=== PATIENT | female | born 1955 | race American Indian/Alaskan Native ===

== ENCOUNTER 2017-06-14 19:41 | Emergency (ER) | payer MEDICARE ==
[2017-06-14 20:28] LABS: Basophils % (Auto) 0.7 % (0.0-1.8); Eosinophils % (Auto) 1.8 % (0.0-4.3); Hematocrit 36.8 % (30.3-42.9); Hemoglobin 11.7 gm/dl (10.1-14.3); Mean Corpuscular HGB Conc 32 % (30-34); Mean Corpuscular Hemoglobin 28 pg (28-32); Mean Corpuscular Volume 89 fl (79-97); Platelet Count 358 K/mm3 (140-440); Red Blood Count 4.14 M/mm3 (3.65-5.03); Red Cell Distribution Width 14.1 % (13.2-15.2); White Blood Count 6.5 K/mm3 (4.5-11.0)
[2017-06-14 20:30] LABS: INR 0.87 (0.87-1.13)
[2017-06-14 20:31] LABS: Anion Gap 18 mmol/L; BUN/Creatinine Ratio 15; Blood Urea Nitrogen 22 mg/dL (7-17); Calcium 9.4 mg/dL (8.4-10.2); Carbon Dioxide 29 mmol/L (22-30); Chloride 96.6 mmol/L (98-107); Glucose 103 mg/dL (65-100); Potassium 3.7 mmol/L (3.6-5.0); Sodium 140 mmol/L (137-145)
[2017-06-14 20:31] LABS: Partial Thromboplastin Time 26.9 Sec. (24.2-36.6)
--- NOTE | 2017-06-14 20:31 | Cat Scan Report ---
FINAL REPORT PROCEDURE: CT HEAD/BRAIN WO CON TECHNIQUE: Computerized tomography of the head was performed without contrast material. HISTORY: neuro deficits < 6hrs or sx present upon awakening COMPARISON: No prior studies are available for comparison. FINDINGS: Skull and scalp: Normal. Paranasal sinuses: Normal. Ventricles and subarachnoid spaces: Normal. Cerebrum: No evidence of hemorrhage, acute infarction or mass . Cerebellum and brainstem: No evidence of hemorrhage, acute infarction or mass. Vasculature: Normal. Comments: None. IMPRESSION: Normal Examination
[2017-06-14 20:49] VITALS: BP 119/65
--- NOTE | 2017-06-14 21:48 | Emergency Department Report ---
ED General Adult HPI - General Chief complaint: Neuro Symptoms/Deficit Stated complaint: GENERAL WEAKNESS Time Seen by Provider: 06/14/17 19:51 Source: patient, EMS (ems notes not available at time of chart dictation), RN notes reviewed Mode of arrival: Stretcher Limitations: No Limitations - History of Present Illness Initial comments: This is a 61-year-old female who was previously unknown to this provider. Patient reports a history of anxiety. Patient is brought to the hospital by EMS as a possible stroke. Patient has no recollection of the events. She reports that she got nauseous and threw up. She currently denies headache, neck pain, chest pain, abdominal pain or shortness of breath. Her symptoms do not radiate anywhere, and they have no exacerbating or relieving factors. As per verbal report from the nurse, patient had an episode of syncope, passed out, and had slurred speech. Patient has no recollection of this. Patient denies pulmonary embolus and DVT risk factors. Patient reports feeling anxious currently. -: Sudden Severity scale (0 -10): 0 Consistency: now resolved Improves with: none Worsens with: none Associated Symptoms: confusion, nausea/vomiting, syncope. denies: chest pain, cough, diaphoresis, fever/chills, loss of appetite, malaise, shortness of breath , weakness - Related Data Allergies Allergy/AdvReac Type Severity Reaction Status Date / Time NSAIDS (Non-Steroidal Allergy Nausea Verified 06/14/17 19:52 Anti-Inflamma ED Review of Systems ROS: Stated complaint: GENERAL WEAKNESS Other details as noted in HPI ED Past Medical Hx - Past Medical History Previous Medical History?: Yes Hx Hypertension: Yes Hx Liver Disease: Yes (hep C) - Surgical History Past Surgical History?: Yes Additional Surgical History: hysterectomy, tubal ligation - Social History Smoking Status: Never Smoker Substance Use Type: None ED Physical Exam - General Limitations: No Limitations General appearance: alert, in no apparent distress - Head Head exam: Present: atraumatic, normocephalic - Eye Eye exam: Present: normal appearance, EOMI. Absent: nystagmus - ENT ENT exam: Present: normal exam, normal orophraynx, mucous membranes moist, normal external ear exam - Neck Neck exam: Present: normal inspection, full ROM - Respiratory Respiratory exam: Present: normal lung sounds bilaterally. Absent: respiratory distress - Cardiovascular Cardiovascular Exam: Present: normal rhythm, tachycardia, normal heart sounds. Absent: systolic murmur, diastolic murmur, rubs, gallop - GI/Abdominal GI/Abdominal exam: Present: soft, normal bowel sounds. Absent: distended, tenderness, guarding, rebound, rigid, pulsatile mass - Extremities Exam Extremities exam: Present: normal inspection, full ROM, normal capillary refill. Absent: pedal edema, joint swelling, calf tenderness - Back Exam Back exam: Present: normal inspection, full ROM. Absent: tenderness, CVA tenderness (R), paraspinal tenderness, vertebral tenderness - Neurological Exam Neurological exam: Present: alert, oriented X3, CN II-XII intact, normal gait, other (Extraocular movements intact. Tongue midline. No facial droop. Facial sensation intact to light touch in the V1, V2, V3 distribution bilaterally. 5 and 5 strength in 4 extremities.. Sensation is intact to light touch in 4 extremities.). Absent: motor sensory deficit - Psychiatric Psychiatric exam: Present: anxious - Skin Skin exam: Present: warm, dry, intact, normal color. Absent: rash ED Course Vital Signs 06/14/17 19:47 Temperature 98.4 F Pulse Rate 104 H Respiratory 18 Rate Blood Pressure 119/65 [Left] O2 Sat by Pulse 98 Oximetry ED Medical Decision Making - Lab Data Result diagrams: 06/14/17 19:58 06/14/17 19:50 Vital Signs 06/14/17 19:47 Temperature 98.4 F Pulse Rate 104 H Respiratory 18 Rate Blood Pressure 119/65 [Left] O2 Sat by Pulse 98 Oximetry Lab Results 06/14/17 06/14/17 06/14/17 Range/Units 19:50 19:53 19:58 WBC 6.5 (4.5-11.0) K/mm3 RBC 4.14 (3.65-5.03) M/mm3 Hgb 11.7 (10.1-14.3) gm/dl Hct 36.8 (30.3-42.9) % MCV 89 (79-97) fl MCH 28 (28-32) pg MCHC 32 (30-34) % RDW 14.1 (13.2-15.2) % Plt Count 358 (140-440) K/mm3 Lymph % (Auto) 51.4 H (13.4-35.0) % Tama % (Auto) 9.0 H (0.0-7.3) % Eos % (Auto) 1.8 (0.0-4.3) % Baso % (Auto) 0.7 (0.0-1.8) % Lymph # 3.3 (1.2-5.4) K/mm3 Tama # 0.6 (0.0-0.8) K/mm3 Eos # 0.1 (0.0-0.4) K/mm3 Baso # 0.0 (0.0-0.1) K/mm3 Seg Neutrophils % 37.1 L (40.0-70.0) % Seg Neutrophils # 2.4 (1.8-7.7) K/mm3 PT (12.2-14.9) Sec. INR (0.87-1.13) APTT (24.2-36.6) Sec. Thrombin Time (15.1-19.6) Sec. D-Dimer (0-234) ng/mlDDU Sodium 140 (137-145) mmol/L Potassium 3.7 (3.6-5.0) mmol/L Chloride 96.6 L (98-107) mmol/L Carbon Dioxide 29 (22-30) mmol/L Anion Gap 18 mmol/L BUN 22 H (7-17) mg/dL Creatinine 1.5 H (0.7-1.2) mg/dL Estimated GFR 43 ml/min BUN/Creatinine Ratio 15 % Glucose 103 H (65-100) mg/dL POC Glucose 104 (70-105) Calcium 9.4 (8.4-10.2) mg/dL Troponin T < 0.010 (0.00-0.029) ng/mL Salicylates (2.8-20.0) mg/dL Acetaminophen (10.0-30.0) ug/mL Plasma/Serum Alcohol (0-0.07) gm% 06/14/17 06/14/17 06/14/17 Range/Units 19:58 19:58 20:44 WBC (4.5-11.0) K/mm3 RBC (3.65-5.03) M/mm3 Hgb (10.1-14.3) gm/dl Hct (30.3-42.9) % MCV (79-97) fl MCH (28-32) pg MCHC (30-34) % RDW (13.2-15.2) % Plt Count (140-440) K/mm3 Lymph % (Auto) (13.4-35.0) % Tama % (Auto) (0.0-7.3) % Eos % (Auto) (0.0-4.3) % Baso % (Auto) (0.0-1.8) % Lymph # (1.2-5.4) K/mm3 Tama # (0.0-0.8) K/mm3 Eos # (0.0-0.4) K/mm3 Baso # (0.0-0.1) K/mm3 Seg Neutrophils % (40.0-70.0) % Seg Neutrophils # (1.8-7.7) K/mm3 PT 12.2 (12.2-14.9) Sec. INR 0.87 (0.87-1.13) APTT 26.9 (24.2-36.6) Sec. Thrombin Time 16.1 (15.1-19.6) Sec. D-Dimer 265.06 H (0-234) ng/mlDDU Sodium (137-145) mmol/L Potassium (3.6-5.0) mmol/L Chloride (98-107) mmol/L Carbon Dioxide (22-30) mmol/L Anion Gap mmol/L BUN (7-17) mg/dL Creatinine (0.7-1.2) mg/dL Estimated GFR ml/min BUN/Creatinine Ratio % Glucose (65-100) mg/dL POC Glucose (70-105) Calcium (8.4-10.2) mg/dL Troponin T (0.00-0.029) ng/mL Salicylates < 0.3 L (2.8-20.0) mg/dL Acetaminophen (10.0-30.0) ug/mL Plasma/Serum Alcohol (0-0.07) gm% 06/14/17 06/14/17 Range/Units 20:44 20:44 WBC (4.5-11.0) K/mm3 RBC (3.65-5.03) M/mm3 Hgb (10.1-14.3) gm/dl Hct (30.3-42.9) % MCV (79-97) fl MCH (28-32) pg MCHC (30-34) % RDW (13.2-15.2) % Plt Count (140-440) K/mm3 Lymph % (Auto) (13.4-35.0) % Tama % (Auto) (0.0-7.3) % Eos % (Auto) (0.0-4.3) % Baso % (Auto) (0.0-1.8) % Lymph # (1.2-5.4) K/mm3 Tama # (0.0-0.8) K/mm3 Eos # (0.0-0.4) K/mm3 Baso # (0.0-0.1) K/mm3 Seg Neutrophils % (40.0-70.0) % Seg Neutrophils # (1.8-7.7) K/mm3 PT (12.2-14.9) Sec. INR (0.87-1.13) APTT (24.2-36.6) Sec. Thrombin Time (15.1-19.6) Sec. D-Dimer (0-234) ng/mlDDU Sodium (137-145) mmol/L Potassium (3.6-5.0) mmol/L Chloride (98-107) mmol/L Carbon Dioxide (22-30) mmol/L Anion Gap mmol/L BUN (7-17) mg/dL Creatinine (0.7-1.2) mg/dL Estimated GFR ml/min BUN/Creatinine Ratio % Glucose (65-100) mg/dL POC Glucose (70-105) Calcium (8.4-10.2) mg/dL Troponin T (0.00-0.029) ng/mL Salicylates (2.8-20.0) mg/dL Acetaminophen < 15.0 (10.0-30.0) ug/mL Plasma/Serum Alcohol < 0.01 (0-0.07) gm% - EKG Data -: EKG Interpreted by Ga EKG shows normal: sinus rhythm Rate: tachycardia - EKG Data 06/14/17 21:49 Sinus tachycardia, 100 bpm, borderline left axis deviation, left anterior fascicular block, not morphologically consistent with ST elevation myocardial infarction, abnormal EKG. - Radiology Data Radiology results: report reviewed, image reviewed Noncontrast CT scan of the brain is negative for acute disease. Patient refused x-ray of the chest. Patient refuses nuclear medicine study. - Medical Decision Making Differential diagnosis, including but not limited to: Acute coronary syndrome, structural cardiac disease, arrhythmia, stroke, transient ischemic attack, pulmonary embolus Assessment and plan: 61-year-old female with no pulmonary embolus or DVT risk factors, low risk by well's criteria, with an NIH score of 0, GCS of 15, clinically sober, does not require or qualify for TPA at this time. EKG abnormal, tachycardia noted, given history of syncope, d-dimer sent, and found to be elevated. Patient is currently refusing an x-ray of the chest as well as nuclear medicine study. The risks of missing a pulmonary embolus including , disability and cardiac arrests were explained to the patient, and she verbalized understanding. Patient clinically sober at this time, exhibits decision-making capacity and is free from distracting injury. This conversation as witnessed by the patient, her family, nurse Hugo Schmitz and Sivan xiong I then recommended empiric systemic anticoagulation, which the patient also refused. Case is presented to the Hospital physician, Dr. Abbott who accepted the patient for renal insufficiency, TIA, syncope. Critical care attestation.: If time is entered above; I have spent that time in minutes in the direct care of this critically ill patient, excluding procedure time. ED Disposition Clinical Impression: TIA (transient ischemic attack), Syncope, Renal insufficiency Disposition: 09 OP ADMIT IP TO THIS HOSP Is pt being admited?: Yes Does the pt Need Aspirin: Yes Condition: Undetermined Instructions: Syncope (ED) Referrals: TAMMY PONCE MD [Primary Care Provider] - 3-5 Days
[2017-06-14] MEDS ORDERED: PLAVIX PO ONE (21:55)
== END 2017-06-14 22:18 | disposition admitted as inpatient to this hospital (09) ==
LOC: ED 19:41
DX: G45.9 Transient cerebral ischemic attack, unspecified (principal); R55 Syncope and collapse; N28.9 Disorder of kidney and ureter, unspecified; I10 Essential (primary) hypertension
CPT/HCPCS: 36415; 70450; 80048; 82962; 84484; 85025; 85379; 85610; 85670; 85730; 93005; 93010; 99285; G0480; 80320